=== PATIENT | female | born 1965 | race African-American/Black ===

== ENCOUNTER 2023-04-01 11:15 | Emergency (ER) | payer OTHER, SELFPAY ==
[2023-04-01] VITALS (9 sets, daily range): BP systolic 132–167; BP diastolic 70–114; PULSE 80–93; RESP 16–20; TEMP 36.3; O2SAT 96–99
--- NOTE | ~2023-04-01 | XR_ITS ---
XR knee RT 3V DATE: 04/01/2023 13:30 INDICATION: Bilateral knee pain TECHNIQUE: 3 views including crosstable lateral COMPARISON: None FINDINGS: . There is varus deformity. No fracture or dislocation or joint effusion, periosteal reaction or bone destruction is evident. No radiopaque intra-articular loose body or chondrocalcinosis is detected. IMPRESSION: Tricompartment osteoarthritis, severe patellofemoral and medial compartments There is deformity Reviewed, dictated and finalized at location B. DDER OPERATOR IMPRESSION: Tricompartment osteoarthritis, severe patellofemoral and medial com partments There is deformity
--- NOTE | ~2023-04-01 | XR_ITS ---
EXAMINATION: XR knee LT 3V DATE: 04/01/2023 13:30 INDICATION: Left knee pain. TECHNIQUE: 3 views of left knee were obtained. COMPARISON: None. FINDINGS: Bone alignment is normal. No fracture. There is severe osteoarthritis of medial and patello femoral compartments and moderate osteoarthritis of lateral compartment. No knee joint effusion. IMPRESSION: 1. Severe left knee osteoarthritis. Reviewed, dictated and finalized at location A. [employer]OR[employer] SPECIALIST
--- NOTE | 2023-04-01 12:22 | ED.EXTPRO ---
HPI - Extremity Problem General Chief complaint: Extremity Problem,Nontraumatic Stated complaint: knee pain Time Seen by Provider: 04/01/23 12:22 Source: patient, family and EMS Mode of arrival: EMS Limitations: no limitations History of Present Illness HPI Narrative: 57 years old female came to the ED by ambulance with her is telling me that patient is unable to take care of herself, unable to stand up and walk because of severe chronic knee pain bilaterally, history of cortisone injection, scheduled for injection in the future. Patient is allergic to NSAID and opioids. Patient been using walker for why. would like to keep patient in the hospital or fpc because of inability to take care of herself and he is not able to take care of her either. She denies any fever, chills, nausea, vomiting, diarrhea, constipation or change at the level of the pain compared to the past. Patient reports some burning urination and like to check a urine. She denies any fever, chills, nausea, vomiting vaginal bleeding discharge Related Data Home Medications Medication Instructions Recorded Confirmed gabapentin 100 mg capsule mg 04/01/23 lidocaine 5 % topical patch patch 04/01/23 Allergies Allergy/AdvReac Type Severity Reaction Status Date / Time acetaminophen [From Percocet] Allergy Hallucinati Verified 04/01/23 11:22 ng codeine Allergy Hallucinati Verified 04/01/23 11:23 ng ibuprofen Allergy Ulcers Verified 04/01/23 11:22 iohexol Allergy Swelling Verified 04/01/23 11:22 [From contrast - CT, X-RAY] morphine Allergy Other Verified 04/01/23 11:22 oxycodone [From Percocet] Allergy Hallucinati Verified 04/01/23 11:22 ng prednisone Allergy Swelling Verified 04/01/23 11:22 Review of Systems Review of Systems: All systems reviewed & are unremarkable except as noted in HPI and below Exam Narrative: General appearance: Well-developed, well-nourished Skin: Normal color Head: Normocephalic, nontraumatic Eyes: Clear conjunctiva ENT: Oropharynx normal, ears normal, nose normal Neck: Supple, nontender Chest and respiratory: Airway patent, no respiratory distress, no accessory muscle use Heart: Regular rate/rhythm Abdomen: Soft, nontender, no organomegaly, quiet bowel sounds Vascular: Normal peripheral pulses, normal capillary refill. Musculoskeletal: Slight limited range of motion of both knees, slight diffuse tenderness, clicking sound with flexion and extension. Neurologic: Alert and oriented ?3, POSTPARTUM NURSE is normal as tested, no gross motor deficit Course Reevaluation(s) Reevaluation #1: Feels a little better after having hydrocodone p.o.. Date: 04/01/23 Time: 16:06 Vital Signs Vital signs: Vital Signs Temperature 36.3 C L 04/01/23 11:23 Pulse Rate 93 04/01/23 11:23 Respiratory Rate 18 04/01/23 11:23 Blood Pressure 140/79 04/01/23 11:23 Pulse Oximetry 98 04/01/23 11:23 Temperature 36.3 C L 04/01/23 11:23 Pulse Rate 86 04/01/23 15:31 Respiratory Rate 16 04/01/23 15:31 Blood Pressure 132/70 04/01/23 15:31 Pulse Oximetry 98 04/01/23 15:31 MDM - Extremity (Nontraumatic) MDM Narrative Medical decision making narrative: Patient came to the ED with chronic knee pain secondary to osteoarthritis, patient not able to take care of herself according to her and he would like to admit her to the hospital or admitted to nursing. X-ray of the knee bilaterally showed advanced osteoarthritis. Urine analysis came back positive for infection supportive employment case manager on the case at this time. No fpc available today. In the ED patient received 1 mg of Dilau
--- NOTE | 2023-04-01 12:59 | PC.NURSE ---
family asking to speak to Care coordination. called, spoke to DELTA, who will be down to speak to family.
[2023-04-01] MEDS: HYDROcodone/acetaminophen (*CRX) 7.5-325 MG TABLET 1 TAB PO (13:30)
--- NOTE | 2023-04-01 14:11 | PCCCNOTE ---
Spoke with Rika ([phone]) regarding bed availability for [facility] insured patient. She stated that bed is available and Facesheet, [place] card, [place] order faxed. Awaiting response.
[2023-04-01 15:14] LABS: Appearance Urine Turbid (Clear); Bacteria Urine 4+ /hpf; Bilirubin Urine Negative (Negative); Blood Urine 2+ (Negative); Color Urine Yellow (Yellow); Glucose Urine UA Negative (Negative); Hyaline Casts Urine Present /lpf; Ketones Urine Negative (Negative); Leukocyte Esterase Ur 3+ LEU/UL (Negative); Nitrate Urine Positive (Negative); Protein Urine 1+ mg/dL (Negative); Specific Grav Ur 1.018 (1.001-1.035); Squamous Epithelial Cell Urine Moderate /hpf (Few); Urobilinogen Urine 0.2 mg/dL (<2.0); WBC Urine >100 /hpf; pH Urine 5.5 (5.0-9.0)
[2023-04-01 15:15] LABS: Add Urine Microscopic? YES
--- NOTE | 2023-04-01 16:03 | PC.NURSE ---
Pt required strong assist of 2 staff to help move from wc to bed. Care coordination working on NH placement
[2023-04-01] MEDS: KETOROLAC (*BKC) 60 MG/2 ML VIAL IM (17:53)
[2023-04-01] MEDS: NITROFURANTOIN MONOHYD MACROCR 100 MG CAP PO (17:54)
== END 2023-04-01 17:30 | disposition home or self-care (01) ==
PROVIDERS: Emergency Provider Emergency Medicine
DX: M17.0 Bilateral primary osteoarthritis of knee (principal); N39.0 Urinary tract infection, site not specified; Z79.899 Other long term (current) drug therapy
CPT/HCPCS: 73562; 81001; 87086; 87088; 96372; 99284; A9270; J1885